=== PATIENT | female | born 1985 | race Caucasian/White ===

== ENCOUNTER 2017-06-27 11:46 | Emergency (ER) | payer OTHER ==
[~2017-06-27 11:46] MED LIST: AUGMENTIN 875-1 EACH PO; IBUPROFEN800 M1 PO; MOBIC15 M1 PO; TYLENOL WITH C1 EACH PO
--- NOTE | 2017-06-27 13:10 | ED GI/GU/ABDOMINAL COMPLAINT ---
History of Present Illness General Chief Complaint: Abdominal Pain/Flank Pain Stated Complaint: LOWER BACK PAIN, ABD PAIN Source: patient Exam Limitations: no limitations Vital Signs & Intake/Output Vital Signs & Intake/Output Vital Signs Date Time Temp Pulse Resp B/P B/P Pulse O2 O2 Flow FiO2 Mean Ox Delivery Rate 06/27 1501 70 20 115/55 97 Room Air 06/27 1154 77 28 152/80 98 Allergies Coded Allergies: No Known Allergies (06/09/17) Reconcile Medications Estradiol 1 MG TABLET 1 TAB PO HORMONE (Reported) Spironolactone 100 MG TABLET 1 TAB PO BID UNKNOWN (Reported) Triage Note: PER PT ? 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 yes ? n Is pt currently ? No HPI: Patient presents for evaluation of severe bilateral lower abdominal pain along with back and groin pain that began suddenly this morning while using the toilet. Patient states the pain worsened with urinating but had an otherwise normal bowel movement. She felt like she had to keep on urinating and defecating even afterwards. She denies any associated fever, cold symptoms, rashes or bleeding or penile discharge. She states she's had similar prior episodes secondary to kidney stones (she refers a history of a horseshoe kidney) . Patient's pain is constant severe and nothing seems to make it feel better. Past History Travel History Traveled to [place] past 21 day No Medical History Any Pertinent Medical History? see below for history Neurological: NONE EENT: NONE Cardiovascular: NONE Respiratory: NONE Gastrointestinal: NONE Hepatic: NONE Renal: NONE Musculoskeletal: NONE Psychiatric: NONE Endocrine: NONE Surgical History Surgical History: none Psychosocial History What is your primary language Turkish Tobacco Use: Quit >30 days ago Family History Hx Contributory? No Review of Systems Review of Systems Constitutional: Reports: no symptoms. EENTM: Reports: no symptoms. Respiratory: Reports: no symptoms. Cardiovascular: Reports: no symptoms. GI: Reports: no symptoms. Genitourinary: Reports: see HPI. Musculoskeletal: Reports: no symptoms. Skin: Reports: no symptoms. Neurological/Psychological: Reports: no symptoms. Hematologic/Endocrine: Reports: no symptoms. Immunologic/Allergic: Reports: no symptoms. All Other Systems: Reviewed and Negative Physical Exam Physical Exam Gastrointestinal: SEE BELOW Comments: Gen.: Well-nourished, well-developed, no acute respiratory distress. Mild distress secondary to bilateral abdominal pain Head: Normocephalic, atraumatic. Eyes: Normal inspection bilaterally Ears: Normal inspection bilaterally Nose: Normal inspection Throat/mouth : Moist mucosa Neck: Supple, full range of motion, no goiter Heart: Regular rate and rhythm, no murmurs rubs or gallops Lungs: Clear to auscultation bilaterally with normal air entry Chest: Nontender Back: Normal range of motion Abdomen: Soft, nontender, nondistended, normal bowel sounds Extremities: Normal range of motion grossly, equal radial pulses, no cyanosis clubbing or edema Neurologic: Cranial nerves grossly intact, speech is clear Skin: warm and dry Psychiatric: Calm, cooperative, no apparent delusions or hallucinations Genitalia: Normal-appearing male genitalia with no signs of testicular torsion, loose inguinal ring on the right with no active hernia Core Measures ACS in differential dx? No Sepsis Present: No Sepsis Focused Exam Completed? No Progress Differential Diagnosis: kidney stone, UTI/pyelo, std, MUSCULOSKELETAL STRAIN Plan of Care: Orders Procedure Date/time Status LIPASE 06/27 1309 Complete COMPREHENSIVE METABOLIC PANEL 06/27 1309 Complete CBC WITHOUT DIFFERENTIAL 06/27 1309 Complete URINALYSIS 06/27 1157 Complete Current Medications Sig/Reginaldo Start time Last Medication Dose Stop Time Status Admin Ketorolac 60 MG ONCE ONE 06/27 1315 CAN Tromethamine 06/27 1316 (Toradol) Laboratory Tests 06/27/17 1402: Anion Gap 7, Estimated GFR > 60, BUN/Creatinine Ratio 15.0, Glucose 109 H, Calcium 9.1, Total Bilirubin 0.5, AST 28, ALT 37, Alkaline Phosphatase 50, Total Protein 7.0, Albumin 4.0, Globulin 3.0, Albumin/Globulin Ratio 1.3, Lipase 41, CBC w Diff NO MAN DIFF REQ, RBC 4.86, MCV 85.0, MCH 29.8, MCHC 35.0, RDW 13.1, MPV 8.4, Gran % 85.7 H, Lymphocytes % 9.3 L, Monocytes % 4.3, Eosinophils % 0.5, Basophils % 0.2, Absolute Granulocytes 8.2 H, Absolute Lymphocytes 0.9 L, Absolute Monocytes 0.4, Absolute Eosinophils 0, Absolute Basophils 0 06/27/17 1159: Urine Color YEL, Urine Clarity HAZY H, Urine pH 6.0, Ur Specific [place] 1.025, Urine Protein NEG, Urine Ketones NEG, Urine Nitrite NEG, Urine Bilirubin NEG, Urine Urobilinogen 0.2, Ur Leukocyte Esterase NEG, Ur Microscopic SEDIMENT EXAMINED, Urine RBC >75 H, Urine WBC 1-3 H, Ur Epithelial Cells FEW, Urine Bacteria MOD H, Urine Hemoglobin LARGE H, Urine Glucose NEG Diagnostic Imaging: Discussed w/RAD: CT Scan. Radiology Impression: PATIENT: MARY GEE PRESENT AGE: 31 PATIENT ACCOUNT NO: [id number] : 87 LOCATION: [facility] ORDERING PHYSICIAN: Francisco Webber MD SERVICE DATE: 06/27/17 EXAM TYPE : CAT - CT ABD & PELVIS W/O IV CONTRAS EXAMINATION: CT ABDOMEN AND PELVIS WITHOUT CONTRAST CLINICAL INFORMATION: Pain. Evaluate for kidney stone. COMPARISON: None TECHNIQUE: Multidetector volumetric imaging was performed from the superior aspect of the liver through the pubic symphysis. Sagittal and coronal reformatted images were obtained on the technologist's workstation. DLP: 665 mGy-cm FINDINGS: LUNG BASES: Small, 0.2 x 0.6 cm linear, subpleural opacity of the posterolateral right lower lobe. 0.4 cm noncalcified nodule of the left lower lobe is seen along the distal major fissure. Also, there are 0.4 cm and 0.5 cm noncalcified nodules within the lateral and posterior left lower lobe. No pleural effusion. LIVER, GALLBLADDER, AND BILIARY TREE: Unremarkable. PANCREAS: Unremarkable. SPLEEN: Unremarkable. ADRENAL GLANDS: Unremarkable. KIDNEYS AND URETERS: There is a horseshoe kidney. Small, 0.2 cm calyceal stones are present within the right and left lower poles of the fused kidney. Mild left hydroureteronephrosis is caused by a 0.3 cm calculus of the distal left ureter located approximately 0.8 cm above the ureterovesical junction. BLADDER: Unremarkable. GASTROINTESTINAL TRACT: Bowel loops are normal in caliber. Appendix is normal. No evidence of inflammation or obstruction along the gastrointestinal tract. No abdominal abscess, ascites or pneumoperitoneum. ABDOMINAL WALL: Unremarkable. LYMPH NODES: Normal. VASCULAR: Unremarkable. PELVIC VISCERA: Unremarkable. OSSEOUS STRUCTURES: Unremarkable. IMPRESSION: 1. Small, 0.2 cm calyceal stones are present in the right and left lower poles of the horseshoe kidney. 2. Mild left hydroureteronephrosis is caused by a 0.3 cm calculus in the distal ureter. 3. Incidentally detected are a few small, noncalcified nodules in the lower lobes. Note that chest CT follow-up is typically not recommended for incidentally detected nodules in patients of age < 35 years, unless there is a compelling clinical reason. DICTATED BY: Wilmar Claros MD DATE/TIME DICTATED:06/27/171329 WOMEN'S STUDIES LECTURER:FERNANDEZ DATE/TIME TRANSCRIBED:06/27/171329 CONFIDENTIAL, DO NOT COPY WITHOUT APPROPRIATE AUTHORIZATION. <Electronically signed in Other Vendor System> SIGNED BY: Wilmar Claros MD 06/27/17 1341 Initial ED EKG: none Departure Departure Disposition: HOME OR SELF CARE Condition: Stable Clinical Impression Primary Impression: Renal colic on left side Secondary Impressions: Horseshoe kidney Referrals: Patient Has No Primary Care Dr (PCP/Family) Additional Instructions: Ketorolac as prescribed for pain. Take a dose of acetaminophen in between as needed for pain. He may otherwise continue her current medications. Follow-up with Dr. Paez (urologist) for evaluation this week. Notify your primary care physician of this emergency department visit and treatment plan. Return if any concerns or sudden worsening. Please note that there might be incidental findings in your evaluation that are unrelated to the current emergency department visit. Please notify your primary care doctor about this emergency department visit in order to obtain and review all of the testing performed so that these incidental findings can be monitored as needed. If you had an x-ray performed, please understand that some fractures may not be seen on the initial set of x-rays. If your symptoms persist you might need a repeat set of x-rays to check for such a fracture. If you had a laceration evaluated, please understand that foreign bodies such as glass or wood may not be visible to the naked eye or on plain x-rays. If the wound becomes red, swollen, increasingly more painful or if there is any drainage from the wound, please have it reevaluated by a physician for the possibility of a retained foreign body. If you're unable to follow up as outlined in the discharge instructions please return to the emergency department. Thank you for choosing the [facility] Emergency Department for your care. It was a pleasure to serve you today. Francisco Webber M.D. [facility] Departure Forms: Customer Survey General Discharge Information Prescriptions: Current Visit Scripts Ketorolac Tromethamine 1 TAB PO Q6P PRN PAIN #16 TAB PATIENT RECEIVED iM KETOROLAC IN THE EMERGENCY DEPARTMENT
[2017-06-27] MEDS ORDERED: ESTRADIOL1 M1 PO (13:15)
[2017-06-27] MEDS ORDERED: SPIRONOLACTONE100 M1 PO (13:15)
--- NOTE | 2017-06-27 13:41 | CT SCAN REPORT ---
EXAMINATION: CT ABDOMEN AND PELVIS WITHOUT CONTRAST CLINICAL INFORMATION: Pain. Evaluate for kidney stone. COMPARISON: None TECHNIQUE: Multidetector volumetric imaging was performed from the superior aspect of the liver through the pubic symphysis. Sagittal and coronal reformatted images were obtained on the technologist's workstation. DLP: 665 mGy-cm FINDINGS: LUNG BASES: Small, 0.2 x 0.6 cm linear, subpleural opacity of the posterolateral right lower lobe. 0.4 cm noncalcified nodule of the left lower lobe is seen along the distal major fissure. Also, there are 0.4 cm and 0.5 cm noncalcified nodules within the lateral and posterior left lower lobe. No pleural effusion. LIVER, GALLBLADDER, AND BILIARY TREE: Unremarkable. PANCREAS: Unremarkable. SPLEEN: Unremarkable. ADRENAL GLANDS: Unremarkable. KIDNEYS AND URETERS: There is a horseshoe kidney. Small, 0.2 cm calyceal stones are present within the right and left lower poles of the fused kidney. Mild left hydroureteronephrosis is caused by a 0.3 cm calculus of the distal left ureter located approximately 0.8 cm above the ureterovesical junction. BLADDER: Unremarkable. GASTROINTESTINAL TRACT: Bowel loops are normal in caliber. Appendix is normal. No evidence of inflammation or obstruction along the gastrointestinal tract. No abdominal abscess, ascites or pneumoperitoneum. ABDOMINAL WALL: Unremarkable. LYMPH NODES: Normal. VASCULAR: Unremarkable. PELVIC VISCERA: Unremarkable. OSSEOUS STRUCTURES: Unremarkable. IMPRESSION: 1. Small, 0.2 cm calyceal stones are present in the right and left lower poles of the horseshoe kidney. 2. Mild left hydroureteronephrosis is caused by a 0.3 cm calculus in the distal ureter. 3. Incidentally detected are a few small, noncalcified nodules in the lower lobes. Note that chest CT follow-up is typically not recommended for incidentally detected nodules in patients of age < 35 years, unless there is a compelling clinical reason.
[2017-06-27 14:42] LABS: ABSOLUTE BASOPHIL COUNT 0 /CUMM (0.0-0.2); ABSOLUTE EOSINOPHIL COUNT 0 /CUMM (0.0-0.7); ABSOLUTE GRANULOCYTE CT 8.2 /CUMM (1.4-6.5); ABSOLUTE LYMPH COUNT 0.9 /CUMM (1.2-3.4); ABSOLUTE MONOCYTE COUNT 0.4 /CUMM (0.10-0.60); BASOPHIL % 0.2 % (0.0-2.0); EOSINOPHIL % 0.5 % (0-5); HEMATOCRIT 41.3 % (37-47); MEAN CORPUSCULAR HGB 29.8 PG (27.0-31.0); MEAN PLATELET VOLUME 8.4 FL (7.4-10.4); PLATELET COUNT 198 /CUMM (130-400); RBC DISTRIBUTION WIDTH 13.1 % (11.5-14.5); RED BLOOD CELL CT 4.86 /CUMM (4.20-5.40); WHITE BLOOD CELL COUNT 9.6 /CUMM (4.8-10.8)
[2017-06-27 14:43] LABS: GRANULOCYTE % 85.7 % (42.2-75.2)
[2017-06-27 15:01] VITALS: BP 115/55
[2017-06-27] MEDS ORDERED: KETOROLAC TROME10 M1 PO (16:21)
== END 2017-06-27 16:57 ==
LOC: ERH 11:46
PROVIDERS: Emergency Medicine
DX: N23 Unspecified renal colic (principal); Q63.1 Lobulated, fused and horseshoe kidney
CPT/HCPCS: 74176; 81001; 96372; 96374; J0131; J1885